=== PATIENT | male | born 1945 | race Two or more races ===

== ENCOUNTER → 2019-07-06 | Outpatient (CLI) | payer MEDICARE | END | disposition home or self-care (01) | LOC: CFH 12:05 | PROVIDERS: ATTEND Internal Medicine Cardiovascular Disease | DX: I21.19 ST elevation (STEMI) myocardial infarction involving other coronary artery of inferior wall (principal); I45.10 Unspecified right bundle-branch block | CPT/HCPCS: 78452; 93017; A9502 ==